=== PATIENT | female | born 1955 | race African-American/Black ===

== ENCOUNTER 2025-02-10 15:10 | Emergency (ER) | payer MEDICAID, SELFPAY ==
--- NOTE | ~2025-02-10 | CT_ITS ---
CLINICAL HISTORY: New headaches CT head without contrast Comparison: None Findings: No intra-axial mass, midline shift, hydrocephalus, or acute hemorrhage. There is mild atrophy. Mild nonspecific supratentorial white matter hypodensities most suggestive of chronic small-vessel ischemic changes. There is no sinus or mastoid fluid. The orbits are unremarkable. No acute skull fracture. IMPRESSION: 1. No acute intracranial findings. This document has been electronically signed by: Vicki Galan MD on 02/10/2025 19:02:44
--- NOTE | ~2025-02-10 | XR_ITS ---
CLINICAL HISTORY: cough 2 view chest x-ray. Comparison: None Findings: The lungs are adequately expanded. No focal consolidation. No effusion or pneumothorax. Cardiac and mediastinal contours are within normal limits. No acute osseous abnormality Impression: No acute process. This document has been electronically signed by: Benjamin Palacios MD on 02/10/2025 16:25:42
--- NOTE | ~2025-02-10 | CT_ITS ---
CLINICAL HISTORY: Left pleuritic CP with hemoptysys CT angiography chest with contrast. 3D Postprocessing. Comparison: None Findings: Examination limited and degraded and limited by diffuse motion artifact. The heart size is borderline enlarged. RV/LV ratio is normal. No pericardial effusion. There is mild 3.8 cm aneurysmal dilatation of the ascending aorta. No central pulmonary embolism. Limited evaluation for peripheral pulmonary embolism. Apparent diffuse interstitial thickening could at least partially relate to motion artifact. No consolidation, pleural effusion or pneumothorax. 7 mm noncalcified nodule in right lung apex seen on image 27/118 series 16. 5 mm noncalcified pulmonary nodule in the lingula on image 66/118 series 16. Thyroid and thoracic esophagus within normal limits. 10 mm hypodense lesion in the dome of the liver likely a cyst. No acute fracture. Degenerative changes thoracic spine. IMPRESSION: 1. No central pulmonary embolism. Peripheral pulmonary embolism not excluded. 2. 3.8 cm aneurysmal dilatation ascending aorta. 3. Borderline cardiomegaly and apparent mild interstitial prominence may represent congestive heart failure. 4. Right apical and lingular small noncalcified nodules. Follow-up recommended as per Fleischner society criteria. This document has been electronically signed by: Vicki Galan MD on 02/10/2025 18:54:18
[2025-02-10 15:19] VITALS: BP 144/88; PULSE 83; RESP 18; TEMP 36.6; O2SAT 96; BMI 25.3
--- NOTE | 2025-02-10 15:27 | ED.GENADULT ---
HPI - General Adult General Chief complaint: General Medical Stated complaint: left side rib pain Time Seen by Provider: 02/10/25 16:28 History of Present Illness ED Provider: Marycarmen FLORES narrative: The patient is a 69-year-old woman who was from [facility]. She speaks Colombian Creole and was interviewed using a tele-toe former stitchdowns. She says that she has no significant past medical history. She is on no medications. She has never been a smoker. She comes to the emergency room because she has had left lower chest pain for about a month that is worse with taking a deep breath and which is associated with the occasional hemoptysis. She has had no fevers, sweats, chills. No nausea or vomiting. No pain or swelling in her legs. She has also had some pain in her left shoulder. She has also had some new headaches over the last month. Related Data Previous Rx's ?Medication ?Instructions ?Recorded lisinopril 10 mg tablet 10 mg PO DAILY #30 tabs 02/10/25 Allergies Allergy/AdvReac Type Severity Reaction Status Date / Time No Known Allergies Allergy Verified 02/10/25 15:26 [facility] Social History Social History Advance Directives: No Advance Directives Information Provided: No Physical Exam ED Vital Signs: Vital Signs - 24 hr 02/10/25 15:19 02/10/25 20:31 02/10/25 21:13 Temperature 97.9 F 97.4 F 97.4 F Pulse Rate 83 63 63 Respiratory Rate 18 16 16 Blood Pressure 144/88 H 140/97 H 140/97 H Pulse Oximetry 96 96 96 Oxygen Delivery Method Room Air Room Air Room Air BMI result Body Mass Index 25.3 Const Other: The patient is a well-groomed 69-year-old woman who was awake and alert and who does not appear in significant obvious distress. HENMT Other: Face is symmetrical. Mucous membranes moist. Eyes General: appearance normal, both eyes and all related structures Neck Other: No JVD, moving her neck easily Chest Other: There is chest wall tenderness with palpation of the ribcage under the left breast. Resp Effort & Inspection: normal respiratory effort Auscultation: clear to auscultation bilaterally Cardio Rate: regular rate Rhythm: regular rhythm Heart sounds: S1 normal heart sound present and S2 normal heart sound present GI Other: The abdomen is soft and nontender. No left upper quadrant tenderness. Skin Other: Skin is dry and unremarkable Neuro Other: The patient is awake and alert with a normal mental status. Cranial nerves 2-12 are intact. She moves her extremities normally and appropriately. Extrem Other: No calf swelling or tenderness. No asymmetry. No edema. Course Course Course Narrative: Lon Madrid [employer] 02/10 1530 This is a rapid medical exam. deferred additional HPI, ROS, PE to primary provider. 69 yo female with no known medical history here with complaints of one month of LUQ, cough with blood streaks, low back pain. Patient came here from [facility]. Does not have a PCP. Limited HPI d/t need for toe former stitchdowns services Will obtain labs, UA, CXR VSS Medications Administered Discontinued Medications Generic Name Dose Route Start Last Admin Trade Name Freq PRN Reason Stop Dose Admin Iohexol 100 ml 02/10/25 17:33 02/10/25 17:33 Iohexol 350 Mg/Ml 100 Ml Infus..Btl IV 02/10/25 17:34 65 ml ONCE ONE Administration Medical Decision Making Medical Decision Making MDM Narrative: The patient is a 69-year-old woman who does not have any definite past medical history although she does not have a primary care doctor. She is here for a complaint of 1 month of left-sided lower chest pain that is worse with taking a deep breath. This is associated with left shoulder pain as well. Additionally the patient has had new headaches over the last several weeks. She does not have any abdominal complaints in her abdominal exam is benign. She reports some episodes of hemoptysis associated with this new left-sided pleuritic chest pain. Her initial labs and a chest x-ray were unremarkable. Given her complaint of pleuritic pain associated with some hemoptysis I also obtained a CT pulmonary angiogram. Given her complain of new headaches we also got a head CT. These studies do not show any acute findings. She has a mild aortic root dilation at 3.8 cm. I think the patient may be discharged for outpatient follow up. She does not have a primary care doctor. I suspect she has some underlying hypertension. She will be prescribed 10 mg of lisinopril daily. I gave her contact information for multiple primary care practices in [place] and in [place]. She should return if worse. Lab Data 02/10/25 15:32 02/10/25 15:32 Labs: Lab Results 02/10/25 02/10/25 Range/Units 15:32 18:26 WBC 7.5 (4.8-10.8) X10*3/uL RBC 4.53 (4.20-5.50) X10*6/uL Hgb 12.6 (12.0-16.0) g/dl Hct 37.8 (37.0-47.0) % MCV 83.4 (80.0-98.0) fL MCH 27.8 (27.0-33.0) pg MCHC 33.3 (31.0-35.0) g/dl RDW 13.1 (11.0-16.0) % Plt Count 362 (160-400) X10*3/uL MPV 8.5 L (9.4-12.3) fL Immature Gran % (Auto) 0.4 (0.0-0.4) % Neut % (Auto) 43.4 L (45-73) % Lymph % (Auto) 44.9 H (20-40) % [place] % (Auto) 9.6 (2-11) % Eos % (Auto) 1.2 (0-4) % Baso % (Auto) 0.5 (0-2) % Lymph # (Auto) 3.4 (1.2-4.9) X10*3/uL [place] # (Auto) 0.7 (0.1-1.2) X10*3/uL Eos # (Auto) 0.1 (0.0-0.4) X10*3/uL Baso # (Auto) 0.0 (0.0-0.2) X10*3/uL Abs Immat Gran (auto) 0.03 (0.00-0.03) X10*3/uL Absolute Neuts (auto) 3.2 (2.0-8.3) x10*3/uL Absolute Nucleated RBC 0.000 (0.0-0.012) X10*3/uL Nucleated RBC % (auto) 0.0 (0.0-0.2) /100WBC Sodium 140 (135-145) mmol/L Potassium 4.3 (3.3-5.1) mmol/L Chloride 103 (96-108) mmol/L Carbon Dioxide 25 (22-29) mmol/L Anion Gap 16 (12-20) BUN 12 (9-16) mg/dL Creatinine 0.68 (0.5-1.4) mg/dL Estim Creat Clear Calc 75.4 Estimated GFR > 60 Random Glucose 97 (60-115) mg/dL Calcium 9.9 (8.4-10.2) mg/dL Total Bilirubin 0.2 (0.0-1.0) mg/dL Direct Bilirubin < 0.2 (0.0-0.5) mg/dL AST 26 (5-31) U/L ALT 17 (0-31) U/L Alkaline Phosphatase 90 (39-117) U/L C-Reactive Protein 0.59 H (< or = 0.50) mg/dL Total Protein 7.8 (6.5-8.0) g/dL Albumin 4.4 (3.5-5.0) g/dL Lipase 29 (8-78) U/L Urine Color Yellow Urine Appearance Clear Urine pH 8.0 (5.0-9.0) Ur Specific [place] 1.020 (1.005-1.025) Urine Protein Negative (Neg-Trace) mg/dL Urine Glucose (UA) Negative (Negative) mg/dL Urine Ketones Negative (Negative) mg/dL Urine Blood Trace H (Negative) Urine Nitrite Negative (Negative) Ur Leukocyte Esterase Negative (Negative) Urine RBC 0-2 (0-2) /HPF Urine WBC 0-5 (0-5) /HPF Ur Squamous Epith Cells 0-2 (0-2) /HPF Urine Bacteria None Seen (None Seen) Hyaline Casts 0-2 (0-2) /LPF Discharge Plan Discharge Clinical Impression: Left-sided chest wall pain, Headache, Hypertension Patient Disposition: Home, Self-Care Additional Instructions: I believe the pain you are experiencing on your chest is probably muscular pain. You may use Tylenol as needed for this pain. Your blood pressure readings here has been a little bit high. You may have some degree of chronic high blood pressure. I have sent a prescription for a blood pressure medication, lisinopril, to your pharmacy. Please start taking this medication once a day. Most importantly you need to get a primary care doctor. I have provided you with the contact information for a number of different practices that might be taking new patients. Some of these practices are associated with [facility] and in [place]. The [facility] is an independent clinic in [place] as well. The other practices are all associated with [facility]. Please start contacting these practices tomorrow to try to get a new primary care doctor for ongoing management of your health and re-evaluation of your blood pressure. Return to the emergency room if you feel significantly worse. Prescriptions: New lisinopril 10 mg tablet 10 mg PO DAILY Qty: 30 0RF Referrals: [facility] [Provider Group] [facility] [Provider Group] [facility] [Provider Group] [facility] [Provider Group] [facility], [place] [Provider Group] [facility] Primary Care, [facility] [Provider Group] Dariela Caruso MD [Physician] - Interventions: ED Discharge Assessment Last Done: 02/10/25 21:13 Discharge Date/Time: 02/10/25 21:14 Print Language: Prema Winter
[2025-02-10 15:40] LABS: MANUAL DIFF FLAG NO
[2025-02-10 15:41] LABS: Basophils Percent Auto 0.5 % (0-2); Eosinophils Absolute Auto 0.1 X10*3/uL (0.0-0.4); Eosinophils Percent Auto 1.2 % (0-4); Hematocrit 37.8 % (37.0-47.0); Hemoglobin 12.6 g/dl (12.0-16.0); Imm Gran Abs Auto 0.03 X10*3/uL (0.00-0.03); Imm Gran Pct Auto 0.4 % (0.0-0.4); Lymphocytes Absolute Auto 3.4 X10*3/uL (1.2-4.9); Lymphocytes Percent Auto 44.9 % (20-40); Mean Corpuscular HGB Conc 33.3 g/dl (31.0-35.0); Mean Corpuscular Hemoglobin 27.8 pg (27.0-33.0); Mean Corpuscular Volume 83.4 fL (80.0-98.0); Mean Platelet Volume 8.5 fL (9.4-12.3); Monocytes Absolute Auto 0.7 X10*3/uL (0.1-1.2); Monocytes Percent Auto 9.6 % (2-11); Neutrophils Absolute Auto 3.2 x10*3/uL (2.0-8.3); Neutrophils Percent Auto 43.4 % (45-73); Platelet Count 362 X10*3/uL (160-400); Red Blood Count 4.53 X10*6/uL (4.20-5.50); Red Cell Distribution Width 13.1 % (11.0-16.0); White Blood Count 7.5 X10*3/uL (4.8-10.8)
[2025-02-10 15:55] LABS: Alanine Aminotransferase 17 U/L (0-31); Albumin Level 4.4 g/dL (3.5-5.0); Anion Gap 16 (12-20); Aspartate Amino Transferase 26 U/L (5-31); Bilirubin Direct < 0.2 mg/dL (0.0-0.5); Bilirubin Total 0.2 mg/dL (0.0-1.0); Blood Urea Nitrogen 12 mg/dL (9-16); Calcium 9.9 mg/dL (8.4-10.2); Carbon Dioxide 25 mmol/L (22-29); Chloride 103 mmol/L (96-108); Creatinine Clr Calc Pharmacy 75.4; Estimated Glomerular Filt Rate > 60; Glucose Random 97 mg/dL (60-115); Lipase 29 U/L (8-78); Potassium 4.3 mmol/L (3.3-5.1); Sodium 140 mmol/L (135-145); Total Protein 7.8 g/dL (6.5-8.0)
[2025-02-10 16:13] LABS: Alkaline Phosphatase 90 U/L (39-117)
[2025-02-10] MEDS: iohexoL 350 MG/ML 100 ML INFUS..BTL IV (17:33)
[2025-02-10 17:48] LABS: C Reactive Protein 0.59 mg/dL (< or = 0.50)
[2025-02-10 18:34] LABS: Appearance Urine Clear; Color Urine Yellow; Glucose Urine UA Negative (Negative); Leukocyte Esterase Urine Negative (Negative); Nitrite Urine Negative (Negative); UMIC TRIGGER UACC YES; Urine Blood Trace (Negative); Urine Ketones Negative (Negative); Urine Protein Negative (Neg-Trace)
[2025-02-10 18:37] LABS: Bacteria Urine None Seen (None Seen); Hyaline Casts Urine 0-2 /LPF (0-2); RBC Urine 0-2 /HPF (0-2); Squamous Epithelial Cell Urine 0-2 /HPF (0-2); WBC Urine 0-5 /HPF (0-5)
[2025-02-10 20:31] VITALS: BP 140/97; PULSE 63; RESP 16; TEMP 36.3; O2SAT 96
[2025-02-10 21:13] VITALS: BP 140/97; PULSE 63; RESP 16; TEMP 36.3; O2SAT 96
== END 2025-02-10 21:14 | disposition home or self-care (01) ==
PROVIDERS: Nurse Practitioner Family; Emergency Provider Emergency Medicine
DX: R07.9 Chest pain, unspecified (principal); I10 Essential (primary) hypertension; R51.9 Headache, unspecified; M25.512 Pain in left shoulder
CPT/HCPCS: 36415; 70450; 71046; 71275; 80048; 80076; 81001; 83690; 85025; 86140; 99283; Q9967

== ENCOUNTER → 2025-02-10 15:28 | Outpatient (BNV) | payer MEDICAID, SELFPAY | PROVIDERS: Emergency Provider Emergency Medicine; Visit Provider Radiology Vascular & Interventional Radiology | DX: I71.21 Aneurysm of the ascending aorta, without rupture (principal); R91.1 Solitary pulmonary nodule; R51.9 Headache, unspecified; R05.9 Cough, unspecified | CPT/HCPCS: 70450; 71046; 71275 ==